=== PATIENT | female | born 1950 | race African-American/Black ===

== ENCOUNTER 2021-06-25 08:28 | Emergency (ER) | payer OTHER ==
[~2021-06-25] VITALS: Ht 167.6 cm; Wt 87.1 kg
[~2021-06-25 08:28] MED LIST: AMBIEN 10 MG TA10 MG PO; AMITIZA 24 MCG24 MC1 PO; ATIVAN1 MG PO; BUPROPION; BUPROPION PO; CELEXA; CLONAZEPAM 1 MG1 M1 NG; FLEXERIL PO; GLYCOLAX POWDER17 G1 PO; GLYCOLAX17 GM PO; HYDROCHLOROTHIA50 MG PO; HYOMAX-DT0.375 MG PO; KLOR-CON M2020 MEQ PO; LASIX 20 MG TAB20 MG PO; LASIX 40 MG TAB40 M2 PO; LORTAB 5 MG/5001 TA1 PO; MEDROL DOSPAK21 TA1 PO; MELOXICAM7.5 MG PO; METFORMIN HCL500 MG PO; METHOCARBAMOL; NORCO 7.5-3251 EACH PO; OMEPRAZOLE20 MG PO; PERCOCET 5-3251 EACH PO; PHENERGAN 25 MG25 M1 PO; PHENERGAN 25 MG25 MG PO; SAVELLA50 MG PO; TRAMADOL 50 MG50 MG PO; TRAZODONE 50 MG50 M1 OR; TRIAMTERENE-HC1 EAC3 PO; ULTRAM 50MG TAB50 MG PO; VALIUM2 MG PO; VALIUM5 MG PO; [UNRECOGNIZED DRUG - OTHER]
[2021-06-25] MEDS ORDERED: POLYMYXIN B/TMP10 ML OPHTHALMIC (10:19)
[2021-06-25] MEDS ORDERED: PERCOCET 5-3251 EACH PO (10:19)
[2021-06-25] MEDS ORDERED: ZOFRAN ODT4 MG PO (10:19)
[2021-06-25 10:25] VITALS: BP 144/91
== END 2021-06-25 10:25 | disposition home or self-care (01) ==
LOC: ER 08:28
DX: T15.12XA Foreign body in conjunctival sac, left eye, initial encounter (principal); I10 Essential (primary) hypertension; M79.7 Fibromyalgia; Z90.711 Acquired absence of uterus with remaining cervical stump; Z98.890 Other specified postprocedural states; Z90.49 Acquired absence of other specified parts of digestive tract; Z79.1 Long term (current) use of non-steroidal anti-inflammatories (NSAID); Z79.84 Long term (current) use of oral hypoglycemic drugs; Z79.899 Other long term (current) drug therapy; Z88.1 Allergy status to other antibiotic agents; Z88.5 Allergy status to narcotic agent; Z88.0 Allergy status to penicillin; Z88.6 Allergy status to analgesic agent; Z88.8 Allergy status to other drugs, medicaments and biological substances; X58.XXXA Exposure to other specified factors, initial encounter; Y93.89 Activity, other specified; Y92.89 Other specified places as the place of occurrence of the external cause; Y99.8 Other external cause status